=== PATIENT | male | born 1945 | race Caucasian/White ===

== ENCOUNTER 2018-01-23 12:29 | Day surgery (SDC) | payer OTHER ==
[~2018-01-23] VITALS: Ht 182.9 cm; Wt 71.8 kg
[2018-01-23] MEDS ORDERED: FINA5 PO (12:43)
[2018-01-23] MEDS ORDERED: DOXA2 PO (12:43)
[2018-01-23] MEDS ORDERED: FLONASE SENSIM9.9 ML (12:43)
[2018-01-23] MEDS ORDERED: MELO7.5 PO (12:44)
[2018-01-23] MEDS ORDERED: TAMS.4ER PO (12:44)
== END 2018-01-23 16:59 | disposition home or self-care (01) ==
LOC: ORSCSDS 12:29
PROVIDERS: Orthopaedic Surgery
PROC: 0LQ14ZZ Repair Right Shoulder Tendon, Percutaneous Endoscopic Approach (ICD-10-PCS; principal; 2018-01-23 13:30)
PROC: 0RNJ4ZZ Release Right Shoulder Joint, Percutaneous Endoscopic Approach (ICD-10-PCS; principal; 2018-01-23 13:30)
PROC: 0LS14ZZ Reposition Right Shoulder Tendon, Percutaneous Endoscopic Approach (ICD-10-PCS; principal; 2018-01-23 13:30)
DX: M75.121 Complete rotator cuff tear or rupture of right shoulder, not specified as traumatic (principal); M75.21 Bicipital tendinitis, right shoulder; M75.41 Impingement syndrome of right shoulder
CPT/HCPCS: C1713; J0171; J0690; J1100; J2250; J2405; J2710; J7120

== ENCOUNTER 2018-01-24 15:56 | Emergency (ER) | payer OTHER ==
[~2018-01-24] VITALS: Ht 182.9 cm; Wt 74.8 kg
[~2018-01-24 15:56] MED LIST: DOXA2 PO; FINA5 PO; FLONASE SENSIM9.9 ML; MELO7.5 PO; TAMS.4ER PO
[2018-01-24 17:28] LABS: Source, Urine Catheter
[2018-01-24 17:39] LABS: Bilirubin, Urine Neg (Neg); Blood, Urine Neg (Neg); Glucose Qualitative, Urine Neg (Neg); Ketones, Urine Neg (Neg); Leukocyte Esterase, Urine Neg (Neg); Nitrite, Urine Neg (Neg); Protein, Urine Neg (Neg); Urobilinogen, Urine NORM (Normal)
[2018-01-24 17:54] LABS: Appearance, Urine Clear (Clear); Color, Urine Yellow (P-Yellow)
== END 2018-01-24 18:21 | disposition home or self-care (01) ==
LOC: ER 15:56
PROVIDERS: Emergency Medicine
DX: R33.8 Other retention of urine (principal); Z79.899 Other long term (current) drug therapy; Z87.891 Personal history of nicotine dependence
CPT/HCPCS: 51702; 51798; 81003; 99283

== ENCOUNTER 2018-01-26 05:39 | Emergency (ER) | payer OTHER ==
[~2018-01-26] VITALS: Ht 182.9 cm; Wt 74.8 kg
[2018-01-26 06:47] LABS: Appearance, Urine Clear (Clear); Bilirubin, Urine Neg (Neg); Blood, Urine 1+ (Neg); Color, Urine Yellow (P-Yellow); Glucose Qualitative, Urine Neg (Neg); Ketones, Urine Neg (Neg); Leukocyte Esterase, Urine Neg (Neg); Nitrite, Urine Neg (Neg); Protein, Urine Neg (Neg); Urobilinogen, Urine NORM (Normal)
[2018-01-26 06:53] LABS: Bacteria Not Seen /hpf; Red Blood Cells, Urine 0-2 /hpf (0-2); Squamous Epithelial Cells Not Seen /hpf (Few); White Blood Cells, Urine Not Seen /hpf (0-5)
== END 2018-01-26 06:59 | disposition home or self-care (01) ==
LOC: ER 05:39
PROVIDERS: Emergency Medicine
DX: R33.9 Retention of urine, unspecified (principal); Z79.899 Other long term (current) drug therapy; Z87.891 Personal history of nicotine dependence
CPT/HCPCS: 51702; 51798; 81001; 99283

== ENCOUNTER 2018-01-30 04:49 | Emergency (ER) | payer OTHER ==
[~2018-01-30] VITALS: Ht 182.9 cm; Wt 74.8 kg
== END 2018-01-30 06:45 | disposition home or self-care (01) ==
LOC: ER 04:49
DX: R33.9 Retention of urine, unspecified (principal)
CPT/HCPCS: 99282